=== PATIENT | female | born 1980 | race Caucasian/White ===

== ENCOUNTER → 2016-08-13 | Outpatient (CLI) | payer OTHER ==
[~2016-08-13] MED LIST: MTR600X PO; PRENTAB26 PO
== END | disposition home or self-care (01) ==
LOC: C.LABSPEC 15:12
PROVIDERS: ATTEND Obstetrics & Gynecology
DX: O09.523 Supervision of elderly multigravida, third trimester (principal)

== ENCOUNTER 2016-08-17 21:28 | Observation (INO) | payer OTHER ==
[~2016-08-17] VITALS: Ht 160 cm; Wt 83.9 kg
[2016-08-17 21:53] VITALS: Ht 160 cm; Wt 83.9 kg
[2016-08-17] MEDS ORDERED: IV FLUIDS COMPLETED PRN (22:45)
--- NOTE | 2016-08-18 07:33 | HISTORY & PHYSICAL EXAMINATION ---
DATE OF ADMISSION: 08/17/2016 CHIEF COMPLAINT: Back pain, intrauterine 37 weeks 5 days, prior breech presentation. HISTORY OF PRESENT ILLNESS: The patient is a 36-year-old 2, para 1, general health is good. She is on no chronic pills or medications. It was dated with an early ultrasound, her due date 09/02/2014. In 2012, she had a male, 8 pounds 1/2 ounces at 40, 36 hours of labor, pushed for 45 minutes. Present has been uneventful; however, about 3 weeks ago when we started to do her pelvic checks, she was found to have a breech presentation which was confirmed by ultrasound. She called today stating she has had back pain most of the day, did not complain of any leakage of fluid or bleeding. She was told to come up to [facility] to be checked. PAST MEDICAL HISTORY: She had a male 2013, good health. ALLERGIES: No known drug allergies. PAST SURGICAL HISTORY: No previous surgery. MEDICAL HISTORY: No history of rheumatic fever, heart disease, heart murmur, diabetes, tuberculosis. SOCIAL HISTORY: No smoking. No alcohol intake. She is employed. FAMILY HISTORY: Mom is 58, in good health. Father 58, in good health, one brother and one sister in good health. REVIEW OF SYSTEMS: HEAD: No symptoms of frequent or severe headaches. EYES: No symptoms of blurred vision or double vision. EARS: No symptoms of frequent ear infections, difficulty hearing. PHYSICAL EXAMINATION: GENERAL: Well-developed, well-nourished, 36-year-old white female, alert, oriented x3 and cooperative in no acute distress, appears as stated age. EYES: Conjunctivae are pink. Sclerae white. No evidence of jaundice. EARS: Had normal light reflex bilaterally. NOSE: Had normal mucosa. Septum is midline. There were no polyps. THROAT: No erythema or evidence of infection. Teeth are in good state of repair. HEAD: Normocephalic, normal distribution of hair. NECK: Supple. Trachea midline. Thyroid is not enlarged. No adenopathy appreciated. Both carotids are of good intensity. CHEST: Clear to auscultation and percussion. No wheezes, rales or rhonchi appreciated. HEART: Regular rhythm. S1, S2 were normal. BREASTS: Normal. ABDOMEN: Revealed term size abdomen. There is no abdominal tenderness, no CVA tenderness. PELVIC: Revealed the cervix to be posterior, closed and presenting part to be floating. I did a bedside ultrasound and confirmed that she was a vertex presentation with the vertex in the right lower quadrant. MUSCULOSKELETAL: Revealed no calf tenderness. IMPRESSIONS OF THIS CASE: Intrauterine of 37 weeks 5 days, unstable lie. Presently vertex presentation. Lower back pain.
--- NOTE | 2016-08-22 08:57 | DISCHARGE SUMMARY ---
Mrs. Anderson is being followed in my office for care and delivery. She was over 36 weeks gestation. She was diagnosed as having an unstable lie. She was documented by ultrasound to have a compound breech presentation. She called stating she had unusual back pain and contractions and thought she might be in premature labor and due to the fact that she was diagnosed as a breech, I requested that she comes to maternity. We placed her on a monitor. heart rate was good. I checked her cervix. Her cervix was closed and presenting part was floating. I did a bedside ultrasound and confirmed that the fetus had now converted to a vertex presentation. After we were able to obtain a reactive NST, document the lie of the fetus and the condition of the cervix, we then discharged her to continue to be followed in our office.
== END 2016-08-17 23:15 | disposition home or self-care (01) ==
LOC: C.OPB 21:28 → C.LD 21:28 → C.OPB 22:18 → C.LD 22:18 → UNDODISOB 23:15 → C.LD 23:15
PROVIDERS: ADMIT Obstetrics & Gynecology; ATTEND Obstetrics & Gynecology
DX: O26.893 Other specified pregnancy related conditions, third trimester (principal); M54.5 Low back pain; O09.523 Supervision of elderly multigravida, third trimester; Z3A.37 37 weeks gestation of pregnancy

== ENCOUNTER 2016-08-27 19:29 | Inpatient (IN) | payer OTHER ==
[~2016-08-27] VITALS: Ht 160 cm; Wt 83.9 kg
[2016-08-27 20:00] VITALS: Ht 160 cm; Wt 83.9 kg
[2016-08-27] MEDS ORDERED: LACTATED RINGER'S 1000ML 1,000 ML IV PRN (20:11)
[2016-08-27] MEDS ORDERED: MISOPROSTOLTAB 50 MCG TAB PO ONE (20:15)
[2016-08-28] MEDS: LACTATED RINGER'S 1000ML 1,000 ML IV SCH ×3 (01:01→14:54)
[2016-08-28] MEDS ORDERED: LACTATED RINGER'S 1000ML 500 ML IV PRN ×3 (08:19→23:48)
[2016-08-28] MEDS ORDERED: OXYTOCIN 30 UNITS/500ML NSS IV PRN (08:30)
[2016-08-28] MEDS ORDERED: EpHEDrine SULFATE INJ 50 MG/ML AMP ONE (09:55)
[2016-08-28] MEDS ORDERED: BUPIVACAINE 0.25% 30 ML VIAL ONE (09:55)
[2016-08-28] MEDS ORDERED: FENTANYL CITRATE INJ 50 MCG/1 ML 2 ML VIAL ONE (09:55)
[2016-08-28] MEDS ORDERED: FENTANYL 2MCG/ML ROPIV 1.25MG/ML 100ML BAG EPI ONE (09:55)
[2016-08-28 10:57] LABS: HEMATOCRIT 33.1 % (37-47); MEAN CELL VOLUME 80.7 fL (80-100); MEAN CORPUSCULAR HEMOGLOBIN 26.1 pg (25-34); PLATELET COUNT 198 K/uL (130-400); WHITE BLOOD COUNT 12.39 K/uL (4.8-10.8)
[2016-08-28 11:13] LABS: MEAN CORPUSCULAR HGB CONC 32.3 g/dl (32-36)
[2016-08-28] MEDS ORDERED: NALOXONE HCL INJ 1 MG in SODIUM CHLORIDE 0.9% 1000ML 1,000 ML IV PRN ×2 (11:26→23:48)
[2016-08-28] MEDS ORDERED: ONDANSETRON INJ 2 MG/ML 2 ML VIAL ONE (11:27)
[2016-08-28] MEDS ORDERED: NALBUPHINE HCL INJ 10 MG/ML AMP IV PRN (11:30)
[2016-08-28] MEDS ORDERED: NALOXONE HCL INJ 0.4 MG/1 ML VIAL/CARP IV PRN (11:30)
[2016-08-28] MEDS ORDERED: DiphenhydrAMINE HCL 50 MG/ML VIAL IV PRN (11:30)
[2016-08-28] MEDS ORDERED: EpHEDrine SULFATE INJ 50 MG/ML AMP IV PRN (11:30)
[2016-08-28] MEDS ORDERED: ONDANSETRON INJ 2 MG/ML 2 ML VIAL IV PRN (11:30)
[2016-08-28] MEDS: FENTANYL 2MCG/ML ROPIV 1.25MG/ML 100ML BAG EPI PRN ×3 (14:52→19:06)
[2016-08-28] MEDS ORDERED: CITRIC ACID/SODIUM CITRATE 15 ML UDC PO STA (22:03)
[2016-08-28] MEDS ORDERED: CEFOXITIN IV 2,000 MG in DEXTROSE 5% 50ML 50 ML IV STA (22:04)
[2016-08-28 22:33] LABS: HEMATOCRIT 31.7 % (37-47); MEAN CELL VOLUME 80.7 fL (80-100); MEAN CORPUSCULAR HGB CONC 32.2 g/dl (32-36); MEAN PLATELET VOLUME 10.8 fL (7.4-10.4); PLATELET COUNT 197 K/uL (130-400); RED BLOOD COUNT 3.93 M/uL (4.2-5.4); WHITE BLOOD COUNT 15.42 K/uL (4.8-10.8)
--- NOTE | 2016-08-28 22:33 | HISTORY & PHYSICAL EXAMINATION ---
DATE OF ADMISSION: 08/27/2016 CHIEF COMPLAINT: Unstable lie and arrest of labor. HISTORY OF PRESENT ILLNESS: The patient is a 36-year-old 2, para 1, good general health. Her due date for this is 09/02/2016 confirmed by early ultrasound and has been complicated by an unstable lie. She had been documented have a breech presentation at least 3 times by ultrasound. Her first was an induction at 40 weeks. In 2012, she had a boy, 8 pounds 0.5 ounce. As previously stated, the present complicated by unstable lie. She had a breech presentation. Also after 36 weeks gestation, she was checked earlier in the week, found to have a vertex presentation and elected for induction at 39+ weeks gestation. Induction consisted of 50 mcg of Cytotec. She contracted through the night. Contractions got hard and eventually, she requested and received epidural anesthesia. She was then augmented with IV Pitocin. The head the whole time remained extremely high. DICTATION ENDS HERE
[2016-08-28] MEDS ORDERED: BUPIVACAINE 0.5 % 5 MG/1 ML PF 10ML VIAL ONE (22:40)
--- NOTE | 2016-08-28 22:50 | HISTORY & PHYSICAL EXAMINATION ---
DATE OF ADMISSION: 08/28/2016 CHIEF COMPLAINT: Unstable lie and arrest of labor. HISTORY OF PRESENT ILLNESS: The patient is a 36-year-old 2, para 1, has good general health, is well dated, due date 09/02/2016, has been complicated by an unstable lie at term; previously delivered an infant in 2012, a male, 8 pounds 1/2 ounce, 40-week induction. Present was documented at least 3 times by ultrasound being a breech presentation. She also flipped several times after 36 weeks. She was checked earlier in the week and was found to be vertex presentation and elected to have induction at 39+ weeks gestation with the vertex. Induction assisted with Cytotec 50 mcg p.o. She contracted well throughout the night. Eventually, she requested and received epidural for pain control. She then was augmented with IV Pitocin. The head remained high throughout the whole time. Membranes were very difficult to rupture and membranes eventually were ruptured, fluid was clear. She continued to contract; however, she had an arrest of labor at about 6 cm and the head did not come down, cervix did not change despite over 2 hours of augmented contractions with IV Pitocin. Also, the patient became exhausted and requested a for delivery. PAST MEDICAL HISTORY: She has no known drug allergies. PAST SURGICAL HISTORY: She has had her wisdom teeth removed, has a live male infant in good condition. SOCIAL HISTORY: No smoking. No alcohol intake. 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 FAMILY HISTORY: Noncontributory. REVIEW OF SYSTEMS: HEAD: No symptoms of frequent or severe headaches. EYES: No symptoms of blurred vision or double vision. EARS: No symptoms of frequent ear infections, difficulty hearing. PHYSICAL EXAMINATION: GENERAL: Well-developed, well-nourished 36-year-old white female, alert, oriented x3 and cooperative, in no acute distress. EYES: Conjunctivae are pink, sclerae white, no evidence of jaundice. EARS: Had normal light reflex bilaterally. NOSE: Had normal mucosa. Septum is midline. There were no polyps. THROAT: No erythema or evidence of infection. Teeth are in good state of repair. HEAD: Normocephalic, normal distribution of hair. NECK: Supple. Trachea midline. Thyroid is not enlarged. No adenopathy appreciated. Both carotids are of good intensity. CHEST: Clear to auscultation and percussion. No wheezes, rales or rhonchi appreciated. HEART: Regular rhythm. S1 and S2 were normal. BREASTS: Normal. ABDOMEN: Revealed a term-size fetus, vertex presentation. No CVA tenderness, no calf tenderness. PELVIC: Revealed the cervix to be 92%-100% effaced, -3 station, vertex, 6 cm. IMPRESSIONS OF THIS CASE: Unstable lie and arrest of labor, secondary to cephalopelvic disproportion.
[2016-08-28] MEDS ORDERED: MoRPHine SULFATE PF 1 MG/ML 10 ML AMP/VIAL ONE (22:58)
[2016-08-28] MEDS ORDERED: OXYTOCIN INJ 10 UNITS/ML VIAL ONE (23:04)
[2016-08-28 23:05] LABS: BASO % 0.1 %; BASO ABS # 0.02 K/uL (0-0.2); COMPLETE YES; EOS % 0.2 %; IG% 0.5 %; LYMPH % 17.6 %; LYMPH ABS # 2.71 K/uL (1.2-3.4); MONO % 5.4 %; NEUT % 76.2 %
[2016-08-28] MEDS ORDERED: DIPHTHERIA/TETANUS/PERTUSSIS 0.5 ML SYR/VIAL IM. ONE (23:45)
[2016-08-28] MEDS ORDERED: LANOLIN OINT EXT PRN ×2 (23:45)
[2016-08-28] MEDS ORDERED: SUPERCREAM 0.870 % 15GM JAR EXT PRN (23:45)
[2016-08-28] MEDS ORDERED: BENZOCAINE 20% AER SPR 82.5 GM CAN EXT PRN (23:45)
[2016-08-28] MEDS ORDERED: HYDROCORTISONE ACETATE 25 MG SUPP PR PRN (23:45)
[2016-08-28] MEDS ORDERED: SENNA 8.6 MG TAB PO PRN (23:45)
[2016-08-28] MEDS ORDERED: MAGNESIUM HYDROXIDE SUSP 30 ML UDC PO PRN (23:45)
--- NOTE | 2016-08-28 23:47 | Anesthesia Procedure Note ---
Anesthesia Epidural Removal Nt Date & Time August 28, 2016 at 23:47 Vital Signs Pain Intensity: 0.0 Notes Mental Status: alert / awake / arousable, participated in evaluation Nausea / Vomiting: adequately controlled Pain: adequately controlled Airway Patency, RR, SpO2: stable & adequate BP & HR: stable & adequate Hydration State: stable & adequate Neuraxial Anesthesia: was administered Anesthetic Complications: no major complications apparent, pt satisfied with anesthetic care Epidural: removed without complications, with tip intact
--- NOTE | 2016-08-28 23:47 | Anesthesiology Progress Note ---
Anesthesia Post Op Note Date & Time August 28, 2016 at 23:46 Vital Signs Pain Intensity: 0.0 Notes Mental Status: alert / awake / arousable, participated in evaluation Pt Amnestic to Procedure: Yes Nausea / Vomiting: adequately controlled Pain: adequately controlled Airway Patency, RR, SpO2: stable & adequate BP & HR: stable & adequate Hydration State: stable & adequate Anesthetic Complications: no major complications apparent
[2016-08-28] MEDS ORDERED: SODIUM CHLORIDE 0.9% 1000ML 1,000 ML IV PRN (23:48)
[2016-08-28] MEDS ORDERED: NALOXONE HCL INJ 0.08 MG in SYRINGE 1.8 ML IV PRN (23:48)
[2016-08-29] VITALS (18 sets, daily range): BP systolic 106–130; BP diastolic 63–84; PULSE 69–83; TEMP 36.4–36.9; O2SAT 97–100
[2016-08-29] MEDS ORDERED: MoRPHine SULFATE 2 MG/ML CARP IV PRN
[2016-08-29] MEDS ORDERED: EpHEDrine SULFATE INJ 50 MG/ML AMP IV PRN
[2016-08-29] MEDS ORDERED: NO NARCOTICS OR SEDATIVES SCH
[2016-08-29] MEDS ORDERED: DC INTRASPINAL MORPHINE SCH
[2016-08-29] MEDS ORDERED: MoRPHine SULFATE PF 1 MG/ML 10 ML AMP/VIAL EPI PRN
[2016-08-29] MEDS ORDERED: NALBUPHINE HCL INJ 10 MG/ML AMP IV PRN
[2016-08-29] MEDS ORDERED: NALOXONE HCL 0.4 MG/1 ML VIAL/CARP IV PRN
[2016-08-29] MEDS: OXYTOCIN INJ 20 UNITS in LACTATED RINGER'S 1000ML 1,000 ML IV SCH ×2 (00:10→08:55)
[2016-08-29] MEDS: KETOROLAC TROMETHAMINE 30 MG/ML VIAL IV. PRN ×2 (00:42→08:05)
--- NOTE | 2016-08-29 01:31 | OPERATIVE REPORT ---
DATE OF OPERATION: 08/28/2016 PROCEDURE: Primary low segment section. INDICATION FOR SURGERY: Unstable lie, arrest of labor. PREOPERATIVE DIAGNOSIS: Unstable lie, cephalopelvic disproportion. POSTOPERATIVE DIAGNOSES: Macrosomia, tight nuchal cord x1 and direct OP. SURGEON: Dr. Hsieh. ROAD CONSULTANT: Dr. Gregory. ESTIMATED BLOOD LOSS: 600 mL ANESTHESIA: Epidural. OPERATIVE FINDINGS AND PROCEDURE: The patient was brought to the OR table, correctly identified by armband and conversation. Epidural was topped off. Compression stockings were applied. Bundy catheter was inserted aseptically in the bladder, connected to gravity drainage. Suprapubic area was shaved. She was placed on the OR table. Lower abdomen and umbilical area were painted with an alcohol-based sterilizing solution, draped in usual sterile fashion. After checking for adequate anesthesia, a Pfannenstiel incision was made, carried down to the anterior fascia by sharp dissection. Hemostasis was secured by electrocauterization. Fascia was incised transversely, from the underlying muscle by blunt and sharp dissection. Recti muscles were in the midline exposing peritoneum which was carefully raised and entered. Incision was made above the vesicouterine fold. Bladder was undermined bluntly, pushed out of the operative field. Lower uterine segment was scored with a knife and then entered with the scissors. Clear amniotic fluid was seen at this time, and the infant was in LOP position looking up towards the patient's right side. The dye can operator's hand was inserted into uterine cavity, and the head was delivered without difficulty. There was a tight nuchal cord around the neck. Infant was suctioned through the mouth and the nose. Eventually, the body of the was delivered. Cord was clamped and cut, and the infant was attended to by the hansard reporter, Dr. Ruiz, who was scrubbed and present at the time of delivery. Cord blood was taken. Placenta was removed manually. Uterine cavity was cleansed with a clean sponge. Uterus, tubes, and ovaries were brought out through the incision. Myometrial edges were grasped with ring forceps and then myometrial approximation was done with a continuous chromic gut suture. A layer of fascia was then approximated over this with a continuous heavy duty Vicryl. Several areas of the approximation were bleeding, and these were bolstered with interrupted [id number] sutures of heavy duty Vicryl, about 4 of them. Then with hemostasis obtained, the peritoneal edges were restored with a running 3-0 chromic. Pelvis was cleansed of all blood clots and debris. Uterus, tubes, and ovaries were normal. They were reinserted into the abdominal cavity. Careful anatomical approximation of the anterior abdominal wall was performed. Peritoneum was closed with a mattress suture of chromic catgut. Recti muscles were approximated with interrupted [id number] suture of chromic catgut. Fascia was closed with continuous interlocking suture of Vicryl on each side, tied in the middle. SubQ was approximated with continuous plain. Skin edges were approximated with staple clips. I attest to the content of the Intraoperative Record and any orders documented therein. Any exceptio ns are noted below.
[2016-08-29] MEDS: PRENATAL VITAMIN TAB PO SCH (08:00)
[2016-08-29] MEDS: FERROUS SULFATE 325 MG TAB PO SCH (08:00)
[2016-08-29] MEDS: DOCUSATE SODIUM 100 MG CAP PO SCH ×2 (08:00→20:22)
[2016-08-29] MEDS: SIMETHICONE 80 MG CHEW PO SCH ×4 (08:25→20:22)
--- NOTE | 2016-08-29 08:48 | Progress Note ---
Subjective Aug 29, 2016. Subjective conversation w/ patient Ambulation: ambulating normally Voiding: reis catheter in place Passing Gas: Yes Diet Tolerance: Clear Liquids Lochia: Small Feeding Type: Bottle Feeding Review of Systems Constitutional: + fever Objective Vital Signs Date Time Temp Pulse Resp B/P (MAP) Pulse Ox O2 Delivery O2 Flow Rate FiO2 08/29/16 07:05 18 98 08/29/16 05:50 16 98 08/29/16 03:50 36.8 76 16 115/72 (86) 97 Room Air 08/29/16 03:50 16 97 08/29/16 02:50 16 97 08/29/16 02:50 36.5 71 16 106/63 (77) 97 Room Air 08/29/16 01:55 97 Room Air 08/29/16 01:55 97 Room Air 08/29/16 01:55 16 97 08/29/16 01:55 36.9 80 16 109/69 (82) 97 Room Air Physical Exam General Appearance: WELL-APPEARING Respiratory/Chest: lungs clear Abdomen: normal bowel sounds, non tender Fundus: Firm, Non-Tender Incision Description: Clean, Dry & Intact Extremities: no pedal edema, no calf tenderness Laboratory Results Last 24 Hours Test 08/28/16 10:46 08/28/16 22:23 White Blood Count 12.39 K/uL 15.42 K/uL Red Blood Count 4.10 M/uL 3.93 M/uL Hemoglobin 10.7 g/dL 10.2 g/dL Hematocrit 33.1 % 31.7 % Mean Corpuscular Volume 80.7 fL 80.7 fL Mean Corpuscular Hemoglobin 26.1 pg 26.0 pg Mean Corpuscular Hemoglobin Concent 32.3 g/dl 32.2 g/dl RDW Standard Deviation 40.1 fL 40.5 fL RDW Coefficient of Variation 13.7 % 13.6 % Platelet Count 198 K/uL 197 K/uL Mean Platelet Volume 11.0 fL 10.8 fL Neutrophils (%) (Auto) 76.2 % Lymphocytes (%) (Auto) 17.6 % Monocytes (%) (Auto) 5.4 % Eosinophils (%) (Auto) 0.2 % Basophils (%) (Auto) 0.1 % Neutrophils # (Auto) 11.74 K/uL Lymphocytes # (Auto) 2.71 K/uL Monocytes # (Auto) 0.84 K/uL Eosinophils # (Auto) 0.03 K/uL Basophils # (Auto) 0.02 K/uL Immature Granulocyte % (Auto) 0.5 % Immature Granulocyte # (Auto) 0.08 K/uL Assessment and Plan Post-Op Day#: 1
[2016-08-29] MEDS ORDERED: ZOLPIDEM TARTRATE 5 MG TAB PO PRN (15:00)
[2016-08-29] MEDS ORDERED: DiphenhydrAMINE HCL 50 MG/ML VIAL IV PRN ×2 (15:00)
[2016-08-29] MEDS ORDERED: MEPERIDINE HCL 50 MG/ML CARP IV PRN ×2 (15:00)
[2016-08-29] MEDS ORDERED: ONDANSETRON INJ 2 MG/ML 2 ML VIAL IV PRN ×2 (15:00)
[2016-08-29] MEDS ORDERED: KETOROLAC TROMETHAMINE 30 MG/ML VIAL IV. PRN (15:00)
[2016-08-29] MEDS ORDERED: OXYCODONE/ACETAMINOPHEN 5-325 TAB PO PRN (15:00)
[2016-08-29] MEDS: IBUPROFEN 600 MG TAB PO PRN ×2 (15:53→20:25)
[2016-08-29] MEDS: OXYCODONE/ACETAMINOPHEN 5-325 TAB PO PRN ×2 (15:54→20:26)
[2016-08-29] MEDS ORDERED: BISACODYL 5 MG TABEC PO ONE (22:00)
[2016-08-30] MEDS: IBUPROFEN 600 MG TAB PO PRN ×3 (03:10→13:02)
[2016-08-30] MEDS: OXYCODONE/ACETAMINOPHEN 5-325 TAB PO PRN ×3 (03:11→13:01)
[2016-08-30] MEDS: PRENATAL VITAMIN TAB PO SCH (07:56)
[2016-08-30] MEDS: DOCUSATE SODIUM 100 MG CAP PO SCH (07:56)
[2016-08-30] MEDS: FERROUS SULFATE 325 MG TAB PO SCH (07:56)
[2016-08-30] MEDS: SIMETHICONE 80 MG CHEW PO SCH ×2 (07:56→13:00)
[2016-08-30 09:16] VITALS: BP 123/80; PULSE 65; TEMP 36.5; O2SAT 100
--- NOTE | 2016-08-30 10:44 | Progress Note ---
Subjective Aug 30, 2016. Subjective conversation w/ patient Ambulation: ambulating normally Voiding: no voiding problems, reis catheter in place Passing Gas: Yes Diet Tolerance: Regular Diet Lochia: Small Feeding Type: Bottle Feeding Review of Systems Constitutional: + fever Objective Vital Signs Date Time Temp Pulse Resp B/P (MAP) Pulse Ox O2 Delivery O2 Flow Rate FiO2 08/30/16 09:16 36.5 65 17 123/80 (94) 100 Room Air 08/30/16 07:50 Room Air 08/29/16 23:00 36.8 69 18 116/79 (91) 99 Room Air 08/29/16 23:00 99 Room Air 08/29/16 20:30 36.4 83 20 128/84 (99) 99 Room Air 08/29/16 15:45 100 Room Air 08/29/16 15:45 36.7 80 16 125/76 (92) 100 Room Air 08/29/16 15:00 18 100 08/29/16 13:50 18 99 08/29/16 12:50 16 100 08/29/16 12:00 36.8 71 18 108/72 (84) 100 Room Air 08/29/16 11:50 16 100 08/29/16 10:50 18 97 Physical Exam General Appearance: WELL-APPEARING Respiratory/Chest: lungs clear Abdomen: normal bowel sounds, non tender Fundus: Firm, Non-Tender Incision Description: Clean, Dry & Intact Extremities: no pedal edema, no calf tenderness Laboratory Results Last 24 Hours Test 08/30/16 10:30 Assessment and Plan Post-Op Day#: 2
--- NOTE | 2016-08-30 10:46 | Discharge Instructions ---
Discharge Instructions Date of Service Aug 30, 2016. Admission Reason for Admission: IUP Discharge Discharge Diagnosis / Problem: tight nuchal cord macrosomia Discharge Goals Goal(s): Routine recovery after Activity Recommendations Activity Limitations: as noted below ACTIVITY RECOMMENDATIONS: * Gradual return to full activity over the next 2-3 weeks. * No lifting - nothing heavier than baby over the next 2-3 weeks. * Do not engage in vigorous exercise, sexual activity or sports for 6 weeks. * Do not drive or operate any motorized equipment for 14 days. * You may shower/bathe daily. DIET: Resume Previous Diet If Breast-feeding: * Increase caloric intake by 500 calories, eat 3 well balanced meals, 2 high protein snacks a day and drink 6-8 8oz. glasses of fluid per day. BREAST CARE: If you are not breast feeding: * Wear a supportive bra 24 hours a day for one to two weeks. * Avoid stimulating your breasts and nipples as much as possible during the first few weeks after delivery. * When taking a shower, have the warm water hit your back, not breasts. * When your breasts feel full, apply ice packs. Usually three to four times a day helps ease the discomfort. * Take a mild pain medication (Tylenol / Motrin) when you are uncomfortable. If breast feeding: * Use breast milk to lubricate nipples. Lansinoh cream may be used for sore nipples. You do not need to remove cream prior to breast feeding. If using a different brand of cream, check the label for directions regarding removal of cream prior to nursing. * Wear a supportive bra. * If having problems with breasts or breast feeding, call a party plan sales consultant or your health care provider. VITAMINS: * One tablet daily. Continue taking while or until you have your check up in 6 weeks. SPECIAL CARE INSTRUCTIONS: * Vaginal rest (no tampons, douching, intercourse) until after doctor's visit. * control as discussed with doctor. * Verbalizes understanding of car seat law as reviewed with patient by nursing. * Car Seat hand-out given and reviewed with patient by nursing. * Shaken baby information reviewed with patient by nursing. Call you doctor if: * Heavy bleeding (saturating a pad an hour) or passing clots the size of your fist. Bleeding has a foul smelling odor. * A fever greater than 100.4 degrees F (38 degrees C) on two occasions four hours apart and/or chills. * Unusual pain in the pelvic or vaginal areas. Pain should improve each day . * Call the doctor for any increased redness, drainage or swelling around the incision and any pain unrelieved by prescribed pain medication. * Signs and symptoms of phlebitis(possible blood clots forming in the veins): leg pain, warm, red or swollen area on leg. * "Baby Blues" lasting longer than two weeks. If you have any questions or concerns, call your health care practitioner at [phone]. FOLLOW-UP VISIT: Follow-up visit for examination in 6 weeks. Incision check (staple removal) in 1 week. Please call office at [phone] if not already scheduled. . Current Hospital Diet Patient's current hospital diet: Regular OB Diet Discharge Diet Recommended Diet: Regular Diet Procedures Procedures Performed: PRIMARY SECTION D/T ARREST OF LABOR Pending Studies Studies pending at discharge: no Medical Emergencies . Who to Call and When: Medical Emergencies: If at any time you feel your situation is an emergency, please call 911 immediately. . Non-Emergent Contact Non-Emergency issues call your: Professor Of Environmental Engineering Call Non-Emergent contact if: temperature is above 100.5 . . "Provider Documentation" section prepared by Rosalino Hsieh. . VTE Core Measure Inpt VTE Proph given/why not?: Treatment not indicated
--- NOTE | 2016-08-30 11:06 | DISCHARGE SUMMARY ---
Mrs. Anderson had an unstable lie at term. She was documented by ultrasound on at least 3 different occasions to have a breech presentation. She was seen Friday prior to admission in the office. She was 39 weeks gestation and she was in a vertex presentation. At that time, she was scheduled for induction of labor, brought in Friday, was given 50 mcg Cytotec p.o. She contracted sporadically during the night. Eventually, she was augmented with IV Pitocin, had an epidural for pain control; however, the induction proceeded extremely slow. The head remained high. Even at the time of section, it was a very high presentation. Eventually, she had the membranes ruptured at about 4 cm at which time fluid was noted to be clear. We then gave her maximum doses of Pitocin. She had regular contractions; however, she ended up with an arrest of labor at about 6 cm dilatation and about -3 station. Eventually, the patient was exhausted and basically requested . Performed a primary low segment section due to the arrest of labor. At the time of section, the was noted to be OP with a tight nuchal cord. Apgars were excellent. Postoperatively, the patient did well. She remained afebrile, having received prophylactic antibiotics prior to surgery and on the second postoperative day, she was ambulating well, eating well. She requested early discharge. She was given prescriptions for Percocet and Motrin for pain control, given the usual instructions to call if she had a temp over 100 or any heavy bleeding, and return to the office for removal of mariel.
[2016-08-30 13:28] VITALS: BP_DIAS 80; PULSE 65; TEMP 36.5
[2016-08-30] MEDS ORDERED: BISACODYL 10 MG SUPP PR PRN (23:45)
== END 2016-08-30 13:45 | disposition home or self-care (01) | DRG 766 ==
LOC: C.LD 19:29 → C.OBG 08-29 02:03
PROVIDERS: ADMIT Obstetrics & Gynecology; ATTEND Obstetrics & Gynecology
PROC: 3E0P7GC Introduction of Other Therapeutic Substance into Female Reproductive, Via Natural or Artificial Opening (ICD-10-PCS; principal; 2016-08-28 22:10)
PROC: 10D00Z1 Extraction of Products of Conception, Low, Open Approach (ICD-10-PCS; principal; 2016-08-28 22:10)
DX: O62.1 Secondary uterine inertia (principal); Z37.0 Single live birth; O32.4XX0 Maternal care for high head at term, not applicable or unspecified; O75.81 Maternal exhaustion complicating labor and delivery; O33.9 Maternal care for disproportion, unspecified; O36.63X0 Maternal care for excessive fetal growth, third trimester, not applicable or unspecified; O69.1XX0 Labor and delivery complicated by cord around neck, with compression, not applicable or unspecified; O64.0XX0 Obstructed labor due to incomplete rotation of fetal head, not applicable or unspecified; Z3A.39 39 weeks gestation of pregnancy

== ENCOUNTER → 2016-10-18 | Outpatient (CLI) | payer OTHER ==
[~2016-10-18] MED LIST changes: -MTR600X PO
== END | disposition home or self-care (01) ==
LOC: C.PAPS 15:16
PROVIDERS: ATTEND Obstetrics & Gynecology
DX: Z39.2 Encounter for routine postpartum follow-up (principal); R87.616 Satisfactory cervical smear but lacking transformation zone

== ENCOUNTER 2017-04-24 12:07 | Emergency (ER) | payer OTHER ==
[~2017-04-24] VITALS: Ht 162.6 cm; Wt 75.5 kg
[2017-04-24 12:19] VITALS: TEMP 36.9; Ht 162.6 cm; Wt 75.5 kg
[2017-04-24] MEDS ORDERED: IBUP-1450 PO (12:38)
[2017-04-24] MEDS ORDERED: ALDACTONE PO (12:38)
[2017-04-24] MEDS ORDERED: OPTIRAY 320 IV PRN (13:45)
--- NOTE | 2017-04-24 14:19 | DIAGNOSTIC IMAGING REPORT ---
TEMPORAL BONE CT WITH CONTRAST CLINICAL HISTORY: Left postauricular pain. COMPARISON STUDY: No previous studies for comparison. TECHNIQUE: Axial images through the temporal bones were obtained following intravenous injection of 93 cc of Optiray 320 IV. Sagittal and coronal reconstructions were viewed. FINDINGS: The mastoid air cells are clear. Visualized portions of the parotid glands are unremarkable. There is no fluid collection or infiltration adjacent to the left external auditory canal. The orbits are unremarkable. Visualized portions of the intracranial contents are within normal limits. No significant osseous abnormalities identified. There is minimal mucosal thickening of the ethmoid sinuses. No temporal bone abnormalities identified on this examination. The ossicles are intact. There is no fluid within the middle ears. IMPRESSION: Unremarkable temporal bone CT. Electronically signed by: Dexter Valero M.D. 04/24/2017 2:18 PM Dictated Date/Time: 04/24/2017 2:13 PM
[2017-04-24 14:51] VITALS: BP 140/82; PULSE 89; O2SAT 98
--- NOTE | 2017-04-24 22:41 | EMERGENCY ROOM VISIT NOTE ---
ED Visit Note First contact with patient: 12:56 Chief Complaint: I have pain behind my left ear. History of Present Illness: Ms. Anderson is a 37-year-old white female who ambulates into the ED accompanied by male friend complaining of left posterior radicular pain. Patient reports she has been having ongoing sharp pain behind her left ear for the last 3-4 days. Patient was seen by her PCP today and no ear infection was noted. She was placed on steroids. felt unsatisfied with this visit and is concerned because she has an uncle that had some type of arterial/nerve abnormality that required surgery. She does not remember what this lesion was called and is unsure if there is any congenital issues with this lesion. She did express concern because there were complications from his surgery. Currently she complains of a constant sharp pain in the postauricular area; this is mostly over the superior area medially behind the ear. She rates her discomfort 6/10. Her pain is nonradiating. She is not identified any aggravating or alleviating factors related to the pain. She has been using ibuprofen without relief of her discomfort. She denies any associated symptoms including headache, dizziness, lightheadedness, skin eruptions, skin color changes, fevers, chills, sweats, recent trauma, upper respiratory tract symptoms , hearing changes. Additionally she reports that for the last few years she has recurrent left shoulder pain. She reports before her ear pain started she noticed an achy sensation in the upper trapezius area on the left. This pain was radiating down through the deltoid and the lateral aspect of the arm. She describes this as a burning discomfort. She does not rate this discomfort. She has not identified any aggravating or alleviating factors related to the pain. Associated with her pain she does report there is a paresthesia sensation throughout the same distribution of her pain and feels there might be some hand weakness. Once again the ibuprofen has not relieved this discomfort. She denies any associated neck pain, recent neck trauma, previous significant shoulder injuries or surgeries, recent shoulder injuries, elbow pain, forearm pain, wrist pain, skin eruptions, skin color changes, previous cervical disc disease. Review of Systems: As noted above in history of present illness. 8 body systems were reviewed and found to be negative as noted above. Past Medical History: Patient denies. Current Medications: Aldactone. Allergies to Medications: Patient denies. Social History: Patient is not currently employed; she feels safe in her home environment; she denies tobacco use. Physical Examination: Vital Signs: Date Time Temp Pulse Resp B/P (MAP) Pulse Ox O2 Delivery O2 Flow Rate FiO2 04/24/17 14:51 89 16 140/82 98 04/24/17 12:19 36.9 76 20 169/93 99 Room Air GENERAL: 37-year-old female in no acute distress, nontoxic-appearing, afebrile and hemodynamically stable. NEUROLOGICAL: Awake, alert and oriented to person, place and time. Answering questions appropriately and following commands. Normal gait. Good hand eye coordination. SKIN: Warm, dry and pink. No soft tissue eruptions or trauma noted. HEENT: Atraumatic and normocephalic. External ears are nontender. Auditory canals are pink and patent. Tympanic membranes are pearly márquez with normal light reflex. Postauricular areas bilateral are not erythematous or edematous. I do not appreciate any lymphadenopathy. There are no signs of local trauma or breaks in the skin. No bony deformity or crepitus. No tenderness or erythema over the bilateral mastoid processes. UPPER EXTREMITIES: No gross bony deformities. No local lesions or muscle action.. Mild tenderness over the upper trapezius area which extends down through the lateral aspect of the deltoid into the lateral aspects of the biceps. I do not appreciate any bony tenderness throughout the shoulder including the humeral head. She has full range of motion against resistance and passively. 4/5 muscle strength in all movements of the shoulder, elbow, forearm and wrist. 2+ bicipital, tricipital and brachial radialis deep tendon reflexes. Throughout the extremity and hand the skin was warm and pink and capillary refill was brisk. Normal Urel test. She was able to distinguish light sensations through all dermatomes of the extremity. ED Course: Patient is assessed as noted above. Patient's medication list was reviewed. Patient was offered pain medication and refused. I did contact Dr. Valero, radiologist; he recommended a temporal bone CT with contrast for further evaluation. Temporal Bone CT with Contrast: Was reviewed by myself and read by the radiologist showing clear mastoid air cells, visual portions of the parotid gland unremarkable, no fluid collections or infiltration adjacent to the leg external ear canal, unremarkable orbits, visualized portions of the intracranial contents within normal limits, no osseous abnormalities, no temporal bone abnormalities, ossicles are intact, no fluid in the middle ear. He does note there is mild mucosal thickening within the ethmoid sinuses. Clinical Impression: Left posterior radicular pain. Left-sided cervical radiculopathy Decision-Making: Initially my differential diagnosis I considered otitis externa , otitis media, mastoiditis, sinusitis, intracranial mass, skull fracture and other causes. Disposition: Patient discharged home in stable condition accompanied by her ; prior to departure she was reassessed and subjectively reported she was feeling minimally better and rated her discomfort 5/10. Plan: Patient was encouraged to alternate ibuprofen and acetaminophen every 3 hours as needed for pain. Patient is encouraged every follow-up with primary care provider at the end of her course of steroids if not completely symptom-free. Patient was encouraged to return to the ED for worsening pain, hearing changes, fevers, ear drainage, left upper extremity weakness/numbness/tingling.
== END 2017-04-24 14:50 | disposition home or self-care (01) ==
LOC: C.EDB 12:08 → C.EDD 14:50
DX: M54.12 Radiculopathy, cervical region (principal)